=== PATIENT | female | born 1995 | race Caucasian/White ===

== ENCOUNTER 2020-09-16 11:54 | Emergency (ER) | payer MEDICAID, SELFPAY ==
--- NOTE | ~2020-09-16 | US_ITS ---
EXAMINATION: US OB <=14 wk fetus w TV DATE: 09/16/2020 13:05 INDICATION: Vaginal bleeding during first trimester of TECHNIQUE: Real-time pelvic ultrasound utilizing both a transvaginal and transabdominal probe was pe rformed. The interpreting radiologist was not present for the study. COMPARISON: None. FINDINGS: The uterus measures 6.3 x 5.9 x 4.7 cm. There is an intrauterine gestational sac with double decidua sign. No yolk sac or pole are identified which may be due to early stage of . The nita n sac diameter measures measures 3 mm, which correlates with an estimated gestational age of 4 weeks and 6 days. There are couple additional 1-2 mm anechoic lesions peripheral to the endometrial complex most likely tiny subendometrial cysts. The right ovary measures 2.9 x 1.9 x 2.0 cm. The left ovary measures 2.7 x 1.6 x 1.6 cm. There is no free fluid in the pelvis. IMPRESSION: 1. 3 mm intrauterine gestational sac with no discernible yolk sac or pole likely due to early s tage of . 2. Gestational age by ultrasound based upon mean sac diameter of 4 weeks 6 day(s) +/- 3 day(s) with ultrasound estimated date of delivery (ANGELICA) of 05/20/2021. 3. A couple tiny anechoic likely subendometrial cysts located along the peripheral margin of the endo metrial complex. Given location additional gestational sacs would be unlikely but would consider reas sessment on follow-up imaging. Reviewed, dictated and finalized at location A. [facility] GENERATOR ASSEMBLER IMPRESSION: 1. 3 mm intrauterine gestational sac with no discernible yolk sac or pole likely due to early stage of . 2. Gestational age by ultrasound based upon mean sac diameter of 4 weeks 6 day (s) +/- 3 day(s) with ultrasound estimated date of delivery (ANGELICA) of 05/20/2021. 3. A couple tiny anechoic likely subendometrial cysts located along the periphe ral margin of the endometrial complex. Given location additional gestational sa cs would be unlikely but would consider reassessment on follow-up imaging.
[2020-09-16 12:00] VITALS: BP 122/84; PULSE 93; RESP 18; TEMP 36.6; O2SAT 100
--- NOTE | 2020-09-16 12:29 | ED.GENADULT ---
HPI - General Adult General Chief complaint: Vaginal Bleeding Stated complaint: 6 weeks preg/spotting Time Seen by Provider: 09/16/20 11:58 Source: RN notes reviewed History of Present Illness HPI narrative: Patient presents to emergency department from home for vaginal bleeding. Patient states she is approximately 6 weeks . Patient is is going to be following Dr. Alicia Ayers. States that she noticed mild pinkish blood with wiping she denies any fevers or chills abdominal pain nausea vomiting or any other symptoms is had no previous evaluation for her other than a positive test mosaic Related Data Home Medications Medication Instructions Recorded Confirmed No Home Medications 09/16/20 09/16/20 Allergies Allergy/AdvReac Type Severity Reaction Status Date / Time No Known Allergies Allergy Verified 09/16/20 12:37 Review of Systems Review of Systems: Narrative: Gen.: Denies fevers or chills ENT: Denies congestion Respiratory: Denies shortness of breath or cough CV: Denies chest pain or palpitations GI: Denies abdominal pain nausea, emesis or diarrhea see HPI Musculoskeletal: Denies back pain or muscle pain Neuro: Denies numbness, tingling, weakness or focal weakness Skin: Denies rash Except as documented, all other systems reviewed and negative PMFSH Past Medical History Medical History (Updated 09/16/20 @ 14:55 by Tiburcio Kohli DO) Patient denies significant medical history Social History Social History (Updated 09/16/20 @ 12:30 by Tiburcio Kohli DO) Smoking status: Never smoker Gender identity (if verbalized by the patient): Female Exam Narrative: Exam Narrative: APPEARANCE: No acute distress, nontoxic, resting in bed EYES: EOMI HEENT: Normocephalic, atraumatic, OMM RESPIRATORY: No respiratory distress Clear to auscultation bilaterally with no rhonchi wheezing or rales. CARDIOVASCULAR: Regular rate and rhythm without murmurs rubs or gallops. ABDOMINAL: Soft, nontender, nondistended, no rebound or guarding MUSCULOSKELETAl: Moves all extremities. NEURO: Awake and alert. Following commands, speech normal, no focal deficits SKIN:: Warm, dry. 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 Agrees with plan for discharge and follow-up as an outpatient Discussed with patient results of workup and diagnosis. Discussed need for follow-up with primary care, proper use of medication, and reasons to return to the emergency department. Patient understands and agrees to current treatment plan Vital Signs Vital signs: Vital Signs Temperature 97.9 F 09/16/20 12:00 Pulse Rate 93 09/16/20 12:00 Respiratory Rate 18 09/16/20 12:00 Blood Pressure 122/84 09/16/20 12:00 Pulse Oximetry 100 09/16/20 12:00 Temperature 97.9 F 09/16/20 12:00 Pulse Rate 93 09/16/20 12:00 Respiratory Rate 18 09/16/20 12:00 Blood Pressure 122/84 09/16/20 12:00 Pulse Oximetry 100 09/16/20 12:00 Medical Decision Making Vital Signs Vital Signs: Vital Signs Temperature 97.9 F 09/16/20 12:00 Pulse Rate 93 09/16/20 12:00 Respiratory Rate 18 09/16/20 12:00 Blood Pressure 122/84 09/16/20 12:00 Pulse Oximetry 100 09/16/20 12:00 Temperature 97.9 F 09/16/20 12:00 Pulse Rate 93 09/16/20 12:00 Respiratory Rate 18 09/16/20 12:00 Blood Pressure 122/84 09/16/20 12:00 Pulse Oximetry 100 09/16/20 12:00 Lab Data Result diagrams: 09/16/20 13:07 Labs: Lab Results 09/16/20 09/16/20 09/16/20 Range/Units 13:07 13:07 13:07 WBC 4.2 L (4.5-10.0) K/mm3 RBC 4.19 L (4.2-5.4) M/mm3 Hgb 12.9 (12.0-15.0) g/dL Hct 37.5 (37.0-47.0) % MCV 89.5 (80-100) fl MCH 30.8 (26-34) pg MCHC 34.4 (32-36) g/dl RDW 12.2 (11.5-14.5) % Plt Count 223 (150-375) k/mm3 MPV 9.8 (7.
[2020-09-16 13:17] LABS: Basophils Percent Auto 0.5 % (0.2-1.2); Eosinophils Absolute Auto 0.1 K/mm3 (0-0.3); Eosinophils Percent Auto 1.2 % (0-4.4); Hematocrit 37.5 % (37.0-47.0); Hemoglobin 12.9 g/dL (12.0-15.0); Lymphocytes Absolute Auto 1.91 K/mm3 (0.9-3.2); Lymphocytes Percent Auto 45.4 % (18.3-44.2); Mean Corpuscular HGB Conc 34.4 g/dl (32-36); Mean Corpuscular Hemoglobin 30.8 pg (26-34); Mean Corpuscular Volume 89.5 fl (80-100); Mean Platelet Volume 9.8 fl (7.4-10.4); Monocytes Absolute Auto 0.3 K/mm3 (0.1-0.6); Monocytes Percent Auto 6.2 % (2.6-8.5); Neutrophils Percent Auto 46.7 % (45.5-73.1); Platelet Count Result 223 k/mm3 (150-375); Red Blood Count 4.19 M/mm3 (4.2-5.4); Red Cell Distribution Width 12.2 % (11.5-14.5); White Blood Count 4.2 K/mm3 (4.5-10.0)
[2020-09-16 14:24] LABS: Add Urine Microscopic? YES; Appearance Urine Cloudy (Clear); Bacteria Urine Trace /hpf; Bilirubin Urine Negative (Negative); Blood Urine Negative (Negative); Color Urine Yellow (Yellow); Glucose Urine UA Negative (Negative); Ketones Urine Negative (Negative); Leukocyte Esterase Ur Negative LEU/UL (Negative); Nitrate Urine Negative (Negative); Protein Urine Negative (Negative); Squamous Epithelial Cell Urine Rare /hpf (Few); Urobilinogen Urine Negative mg/dL (<2.0); WBC Urine 0-3 /hpf
[2020-09-16 15:35] VITALS: BP 101/67; PULSE 72; RESP 16; O2SAT 100
== END 2020-09-16 15:35 | disposition home or self-care (01) ==
PROVIDERS: Emergency Provider Emergency Medicine; PCP Internal Medicine
DX: O20.0 Threatened abortion (principal); Z3A.01 Less than 8 weeks gestation of pregnancy
CPT/HCPCS: 36415; 76801; 76817; 81001; 84702; 85025; 85461; 99284

== ENCOUNTER 2021-05-14 13:58 | Emergency (ER) | payer BC, SELFPAY ==
[2021-05-14 14:05] VITALS: BP 105/66; PULSE 108; RESP 18; TEMP 36.5; O2SAT 99
[2021-05-14 14:21] LABS: Add Urine Microscopic? YES; Amorphous Sediment Urine Few; Appearance Urine Cloudy (Clear); Bacteria Urine Trace /hpf; Bilirubin Urine Negative (Negative); Blood Urine Negative (Negative); Color Urine Amber (Yellow); Glucose Urine UA Negative (Negative); Ketones Urine 2+ mg/dL (Negative); Leukocyte Esterase Ur 3+ LEU/UL (Negative); Mucus Urine Heavy /lpf; Nitrate Urine Negative (Negative); Protein Urine 2+ mg/dL (Negative); Squamous Epithelial Cell Urine Many /hpf (Few); WBC Urine >75 /hpf
--- NOTE | 2021-05-14 14:52 | ED.GENADULT ---
HPI - General Adult General Chief complaint: Urogenital-Female Stated complaint: UTI and vaginal rash Time Seen by Provider: 05/14/21 14:03 Source: patient and RN notes reviewed Mode of arrival: ambulatory Limitations: no limitations History of Present Illness HPI narrative: Patient is a 25-year-old female who presents to emergency department for evaluation of discomfort with urination and some vaginal sores that she noticed Monday went to urgent care was placed on Macrobid which she has been taking since Monday but now she continues to have discomfort with urination and wounds denies any concern for STDs or similar occurrence in the past on arrival does not appear uncomfortable or distressed Related Data Allergies Allergy/AdvReac Type Severity Reaction Status Date / Time No Known Allergies Allergy Verified 05/14/21 14:12 Review of Systems Review of Systems: All systems reviewed & are unremarkable except as noted in HPI and below PMFSH Past Medical History Medical History Patient denies significant medical history Social History Social History Smoking status: Never smoker Gender identity (if verbalized by the patient): Female Exam Narrative: Exam Narrative: GENERAL: Well-appearing, well-nourished, and in no acute distress. HEAD: Normocephalic, atraumatic. EYES: PERRLA and EOMI. ENT: Nares clear, no rhinorrhea or epistaxis. Mucous membranes moist. CHEST: Clear to auscultation. No respiratory distress. No wheezes rales or rhonchi HEART: Regular rate and rhythm. No murmur heard. Normal peripheral pulses. ABDOMEN: Soft, nontender, nondistended FEMALE GENITOURINARY: Patient with some superficial ulcerations of the right labia majora and irritation in the mucosa of the vagina with some liquid green discharge in the vaginal vault EXTREMITIES: Normal range of motion. No edema. SKIN: Warm, dry, no rash. NEURO: No focal deficits. Alert and oriented x3. PSYCH: Normal mood and affect. Course Course Emergency Course: Patient evaluated the emergency department will be referred to gynecology given the discharge and wounds on the vagina for further evaluation was given a dose of Rocephin in the emergency department she is afebrile nontoxic-appearing without emesis in agreement with this plan Vital Signs Vital signs: Vital Signs Temperature 97.7 F 05/14/21 14:05 Pulse Rate 108 H 05/14/21 14:05 Respiratory Rate 18 05/14/21 14:05 Blood Pressure 105/66 05/14/21 14:05 Pulse Oximetry 99 05/14/21 14:05 Temperature 97.7 F 05/14/21 14:05 Pulse Rate 108 H 05/14/21 14:05 Respiratory Rate 18 05/14/21 14:05 Blood Pressure 105/66 05/14/21 14:05 Pulse Oximetry 99 05/14/21 14:05 Medical Decision Making MDM Narrative Medical decision making narrative: Patient found to have vaginal discharge will be discharged with outpatient follow-up with gynecology for culture results will have antibiotics changed given that she has not improved with the Macrobid Vital Signs Vital Signs: Vital Signs Temperature 97.7 F 05/14/21 14:05 Pulse Rate 108 H 05/14/21 14:05 Respiratory Rate 18 05/14/21 14:05 Blood Pressure 105/66 05/14/21 14:05 Pulse Oximetry 99 05/14/21 14:05 Temperature 97.7 F 05/14/21 14:05 Pulse Rate 108 H 05/14/21 14:05 Respiratory Rate 18 05/14/21 14:05 Blood Pressure 105/66 05/14/21 14:05 Pulse Oximetry 99 05/14/21 14:05 Lab Data Labs: Lab Results 05/14/21 05/14/21 05/14/21 Range/Units 14:09 15:06 15:06 Urine Color Susan (Yellow) Urine Appearance Cloudy H (Clear) Urine pH 6.0 (5.0-9.0) Ur Specific [place] 1.030 (1.001-1.035) Urine Protein 2+ H (Negative) mg/dL Urine Glucose (UA) Negative (Negative) mg/dL Urine Ketones 2+ H (Negative) mg/dL Ur Blood (Man) Negative (Negative) Urine Nitrate Negat
[2021-05-14] MEDS: LIDOCAINE HCL 1% LOCAL INJ 20 ML VIAL 2.1 ML XX (15:16)
[2021-05-14] MEDS: cefTRIAXone 1 GM VIAL 0.5 GM IM (15:17)
== END 2021-05-14 15:43 | disposition home or self-care (01) ==
PROVIDERS: Emergency Medicine; Emergency Medicine Emergency Medical Services; Emergency Provider Emergency Medicine; PCP Internal Medicine
DX: N76.0 Acute vaginitis (principal)
CPT/HCPCS: 81001; 81025; 87070; 87086; 87491; 87591; 87808; 96372; 99284; J0696